=== PATIENT | female | born 1950 | race Caucasian/White ===

== ENCOUNTER → 2020-12-22 | Day surgery (SDC) | payer OTHER ==
[2020-12-18 13:53] VITALS: BMI 26.6
[~2020-12-22] MED LIST: ONDANSETRON 4 MG/2 ML VIAL ONE; PROPOFOL 20 ML ONE
[2020-12-22 14:30] VITALS: BP 124/90; PULSE 81; TEMP 98.1
== END | disposition home or self-care (01) ==
LOC: FASU-ENDO 11:48
PROVIDERS: ATTEND Internal Medicine Gastroenterology
PROC: 0DBL8ZX Excision of Transverse Colon, Via Natural or Artificial Opening Endoscopic, Diagnostic (ICD-10-PCS; 2020-12-22)
PROC: 0DBM8ZX Excision of Descending Colon, Via Natural or Artificial Opening Endoscopic, Diagnostic (ICD-10-PCS; 2020-12-22)
PROC: 0D5H8ZZ Destruction of Cecum, Via Natural or Artificial Opening Endoscopic (ICD-10-PCS; 2020-12-22)
PROC: 0DBK8ZX Excision of Ascending Colon, Via Natural or Artificial Opening Endoscopic, Diagnostic (ICD-10-PCS; principal; 2020-12-22 13:13)
DX: R19.7 Diarrhea, unspecified (principal); K64.1 Second degree hemorrhoids; K55.20 Angiodysplasia of colon without hemorrhage; K52.89 Other specified noninfective gastroenteritis and colitis